=== PATIENT | female | born 1990 | race Caucasian/White ===

== ENCOUNTER 2017-01-11 09:38 | Emergency (ER) | payer MEDICAID ==
[~2017-01-11] VITALS: Ht 170.2 cm; Wt 63.5 kg
[2017-01-11] MEDS ORDERED: IBUPROFEN600 MG ORAL (10:06)
[2017-01-11] MEDS ORDERED: CLINDAMYCIN HC300 MG ORAL (10:13)
[2017-01-11] MEDS ORDERED: Dexamethasone 4mg/ml vial IM ONE (10:15)
[2017-01-11 10:57] VITALS: BP 96/67
[2017-01-11 11:05] VITALS: BP 96/67
--- NOTE | 2017-01-12 06:42 | Emergency Room Report ---
History of Present Illness General Chief Complaint: Sore Throat Source: Patient Present Illness HPI 26-year-old female no significant past medical history presenting with sore throat fever and chills for the last 4 days. Patient states subjective fever and chills, has been taking Motrin without relief. Patient states sore throat, feeling miserable, still able to drink but hasn't pain with eating solid foods. Denies any change in voice, denies generalized throat pain but not one side versus the other. No sick contacts or recent travel. Denies any history of STDs Allergies: Coded Allergies: CEPHALEXIN (Verified Allergy, Unknown, 01/11/17) Patient History Past Medical History: see triage record Past Surgical History: none Pertinent Family History: none Last Menstrual Period: on period Reviewed Nursing Documentation: PMH: Agreed, PSxH: Agreed Nursing Documentation-PMH Past Medical History: No Stated History Review of Systems All Other Systems: negative except mentioned in HPI Physical Exam Vital Signs Date Time Temp Pulse Resp B/P (MAP) Pulse Ox O2 Delivery O2 Flow Rate FiO2 01/11/17 09:49 100.8 84 16 95/67 97 Room Air Sp02 EP Interpretation: reviewed, normal General Appearance: normal inspection, well appearing, alert, GCS 15, non-toxic , mild distress Head: normocephalic, atraumatic Eyes: bilateral eye normal inspection, bilateral eye PERRL, bilateral eye EOMI ENT: normal voice, moist mucus membranes, other - Bilateral tonsillar enlargement, white exudates, uvula is midline no signs of QU[employer]YING [employer]IST Neck: normal inspection, full range of motion, supple Respiratory: normal inspection, lungs clear, normal breath sounds, no respiratory distress, no retraction, no wheezing, speaking full sentences, chest symmetrical Cardiovascular #1: normal inspection, regular rate, rhythm, no edema, normal capillary refill Cardiovascular #2: 2+ radial (R), 2+ radial (L) Gastrointestinal: normal inspection, non tender, soft, non-distended, no guarding Musculoskeletal: normal inspection, back normal, normal range of motion, non- tender Neurologic: normal inspection, alert, oriented x3, responsive, motor strength/ tone normal, sensory intact, normal gait, speech normal Psychiatric: normal inspection, judgement/insight normal, memory normal Skin: normal inspection, normal color, no rash, warm/dry, well hydrated, normal turgor Medical Decision Making Diagnostic Impression: Primary Impression: Acute bacterial pharyngitis ER Course 26-year-old female with sore throat DDX: viral vs. infectious mononucleosis vs. bacterial pharyngitis vs. allergies Other serious causes such as QUARRYING SPECIALIST / RPA / deep space neck infection history/physical most consistent with bacterial pharyngitis Plan: Motrin, decadron, supportive care. Antibiotics ER course: Patient remains stable in ED. Pt states improvement of pain with motrin. Decadron given to patient. Patient is allergic to Keflex, so we'll give clindamycin Disposition: Patient will be discharged to home. Patient will follow up with primary care doctor within 5 days. Strict return precautions discussed with patient such as worsening throat pain/swelling, dysphagia, high fever or chills, shortness of breath, abdominal pain, which may indicate severe illness. Patient verbalized understanding and agreed with plan. Please note that this Emergency Department Report was dictated using [employer] application administrator technology software, occasionally this can lead to erroneous entry secondary to interpretation by the dictation equipment. Last Vital Signs Date Time Temp Pulse Resp B/P (MAP) Pulse Ox O2 Delivery O2 Flow Rate FiO2 01/11/17 11:05 99.9 78 16 96/67 97 Room Air Disposition: HOME, SELF-CARE Condition: Improved Scripts Clindamycin Hcl (CLINDAMYCIN HCL) 300 Mg Capsule 300 MG ORAL THREE TIMES A DAY for 7 Days, #21 CAP Prov: Elvis Romero M.D. 01/11/17 Referrals: NON PHYSICIAN Patient Instructions: Pharyngitis, [id number] Elvis Romero M.D. Jan 12, 2017 06:42
== END 2017-01-11 11:15 | disposition home or self-care (01) ==
LOC: EMR 10:00
DX: J02.8 Acute pharyngitis due to other specified organisms (principal); B96.89 Other specified bacterial agents as the cause of diseases classified elsewhere; Z88.1 Allergy status to other antibiotic agents
CPT/HCPCS: 96372; 99283; J1100